=== PATIENT | male | born 1955 | race Caucasian/White ===

== ENCOUNTER 2024-10-20 03:58 | Inpatient (IN) | payer MEDICARE, OTHER ==
[2024-10-20] VITALS (15 sets, daily range): BP systolic 91–152; BP diastolic 56–94
[~2024-10-20] VITALS: Ht 177.8 cm; Wt 98.3 kg
[~2024-10-20 03:58] MED LIST: GLIMEPIRIDE2 MG PO; JANUMET XR 1001 EACH PO; LISINOPRIL30 MG PO; METANX CAPSULE1 EACH PO; METFORMIN HCL750 MG PO; SIMVASTATIN40 MG PO
[2024-10-20] MEDS ORDERED: FAMOTIDINE 20 MG/ 2 ML VIAL IV ONE (04:30)
[2024-10-20 04:33] LABS: BASOPHILS 0.6 % (0.2-1.2); EOSINOPHILS 5.5 % (0.8-7.0); LYMPHOCYTES 14.1 % (21.8-53.1); MCH 29.9 PG (25.7-32.2); MCHC 34.0 g/dL (32.3-36.5); MCV 88.0 fL (79.0-92.2); MONOCYTES 5.7 % (5.3-12.2); NEUTROPHILS 73.6 % (34.0-67.9); RBC 5.15 M/uL (4.63-6.08)
[2024-10-20 04:42] LABS: INR 1.07 (0.80-1.30); PROTIME 13.5 Sec (11.2-14.2)
[2024-10-20 04:46] LABS: ALT (SGPT) 36.0 U/L (14-59); AST (SGOT) 17.0 U/L (15-37); GLOMERULAR FILTRATION RATE,EST 93.0 mL/min (>60); PROTEIN, TOTAL 6.9 g/dL (6.4-8.2); UREA NITROGEN 15.0 mg/dL (7-18)
[2024-10-20 05:10] LABS: ABO O; ANTIBODY SCREEN NEGATIVE; RH POSITIVE
[2024-10-20] MEDS ORDERED: LACTATED RINGER'S 1,000 ML IV SCH ×2 (06:00→09:15)
[2024-10-20] MEDS ORDERED: TRANEXAMIC ACID IN NACL,ISO-OS 1,000 MG/100 ML PIGGYBACK IV SCH (06:30)
--- NOTE | 2024-10-20 06:52 | NUR ---
PATIENT ARRIVED FROM ED VIA STRETCHER WITH ROHINI ANDRES, AND . PATIENT IS ALERT AND ORIENTED, HE TRANSFERED SELF TO HOSPITAL BED. HE REPORTS NO PAIN OT NAUSEA AT THIS TIME. HE DID FEEL MILD NAUSEA IN ROUTE TO CCU FROM ED, BUT THAT HAS RESOLVED. V/S STABLE. IVF INFUSING.
--- NOTE | 2024-10-20 08:00 | NUR ---
PATIENT ADMITTED FOR GI BLEED INTO ROOM 128. PATIENT WOKE UP AROUND 0000 WITH BRIGHT RED BLOOD IN TOILET, AND THIS HAS CONTINUED. PATIENT DENIES FEELING LIGHTHEADED OR DIZZY, AND VITALS ARE STABLE. PT DOES REPORT TAKING ASPIRIN QUITE REGULARLY, NOT EVERY DAY BUT ALMOST, AND TAKES 3-4 OF THESE AT A TIMES FOR HIS CHRONIC BACK PAIN. PT AMBULATING INTO BATHROOM WITHOUT DIFFICULTY. PT'S LULU IN ROOM UPON ARRIVAL WELL. PLAN OF CARE DISCUSSED. PT TO SEE BOTH DR. REDD AND DR. MENDOZA. PT TO BE NPO UNTIL FURTHER ORDERS. IVF AT 125 ML/HR.
[2024-10-20] MEDS ORDERED: ASPIRIN81 MG PO (08:13)
--- NOTE | 2024-10-20 08:53 | NUR ---
DR. REDD IN TO SEE PATIENT AT THIS TIME. PT HAS HAD 1 LIQUID BURGUNDY BM IN BATHROOM THAT MEASURED 300 ML. PT DENIES ANY DIZZYNESS OR LIGHTHEADEDNESS WHEN AMBULATING. HR IN THE 70-80s, UP TO 110s WITH ACTIVITY. IVF CONTINUE AT 125 ML/HR. PLAN OF CARE BEING DISCUSSED.
[2024-10-20] MEDS ORDERED: TRANEXAMIC ACID IN NACL,ISO-OS 1,000 MG/100 ML PIGGYBACK IV ONE (09:00)
[2024-10-20] MEDS ORDERED: DEXTROSE 50% 50 ML SYR IV PRN ×2 (09:15)
[2024-10-20] MEDS ORDERED: IBLOOD GLUCOSE TEST STRIP 1 EA TEST XX PRN (09:15)
[2024-10-20] MEDS ORDERED: GLUCAGON,HUMAN RECOMBINANT 1 MG/ML VIAL SUB-Q PRN (09:15)
[2024-10-20] MEDS ORDERED: DEXTROSE 5% 1,000 ML IV PRN (09:15)
[2024-10-20] MEDS ORDERED: PANTOPRAZOLE SODIUM 40 MG/10 ML VIAL IV SCH (09:37)
--- NOTE | 2024-10-20 09:50 | NUR ---
Spoke with Neri. He lives in a 1 story home with his with 1 step. He does not use any DME.He is active and drives. They do not have financial or safety concerns. Pt plans on dc to home when he is cleared medically. He has not see a DrJanet in 10 years. Per his records are at Dr. Borrego's office. I will call to see if they will see this pt. They deny other needs.
--- NOTE | 2024-10-20 10:38 | NUR ---
UR CLINICAL REVIEW: 2 MN FOR [facility]ERSAL[facility]-PER HEAD SHIPPER MEETS INPT FOR GI BLEED WITH NEED S[facility], [employer]INE[employer] AND SURGICAL CONSULT MEDICARE INPT 10/20/24 @ 0910 ORDER MATCHES REG NO AUTH REQUIRED PER MEDICARE GUIDELINES DC TO HOME WHEN STABLE. MD ANTICIPATE 1-2 DAYS
--- NOTE | 2024-10-20 11:45 | NUR ---
DR. MENDOZA IN TO SEE PATIENT AND DISCUSSING PLAN OF CARE. PT TO HAVE LOWER SCOPE TODAY AROUNF 1630. PT SIGNS CONSENT FOR BOTH BLOOD PRODUCTS AND FOR PROCEDURE. PT REMAINS NPO. CBC NOW PENDING. PT HAS HAD 2 EPISODES OF BLOOD LIQUID BMs SO FAR THIS AM.
--- NOTE | 2024-10-20 11:56 | NUR ---
medications reconciled
[2024-10-20] MEDS ORDERED: PHARMACY RENAL DOSE ADJUSTMENT 1 DOSE MISC PO SCH (12:00)
[2024-10-20 12:08] LABS: BASOPHILS 0.6 % (0.2-1.2); EOSINOPHILS 1.7 % (0.8-7.0); LYMPHOCYTES 12.8 % (21.8-53.1); MCH 29.6 PG (25.7-32.2); MCHC 33.8 g/dL (32.3-36.5); MCV 87.5 fL (79.0-92.2); MONOCYTES 4.6 % (5.3-12.2); NEUTROPHILS 80.0 % (34.0-67.9); RBC 4.23 M/uL (4.63-6.08)
--- NOTE | 2024-10-20 12:49 | NUR ---
PATIENT RESTING AT THIS TIME. ASSESSMENT COMPLETE. PT DENIES FURTHER NEEDS. PT TO GO DOWN FOR A SCOPE AT 1600 TODAY.
[2024-10-20] MEDS ORDERED: IBLOOD GLUCOSE TEST STRIP 1 EA TEST VI SCH (14:00)
[2024-10-20] MEDS ORDERED: Insulin Regular, Human 100 UNIT/ML ML SUB-Q SCH (14:00)
--- NOTE | 2024-10-20 14:00 | NUR ---
Spoke with office staff, there is note in Neri's chart staing Dr. Borrego will see this pt whenever he needs to be seen. Appt scheduled for November 03 at 1020.
[2024-10-20] MEDS ORDERED: LIDOCAINE HCL 2% 5 ML SDV ONE (16:31)
--- NOTE | 2024-10-20 16:34 | NUR ---
PATIENT TAKEN TO LOWER SCOPE AT THIS TIME. PT ABLE TO AMBULATE TO STRETCHER IN [place] FROM CCU STRETCHER. PT'S TO GO HOME FOR A LITTLE BIT TO GRAB A BITE TO EAT BUT WILL RETURN. PT HAS REMAINED IN NORMAL SINUS RHYTHM. PATIENT'S LAST TRIP TO BATHROOM WAS ONLY FLATUS. WILL CONTINUE TO MONITOR.
[2024-10-20 18:09] LABS: BASOPHILS 0.6 % (0.2-1.2); EOSINOPHILS 3.1 % (0.8-7.0); LYMPHOCYTES 21.7 % (21.8-53.1); MCH 29.6 PG (25.7-32.2); MCHC 33.5 g/dL (32.3-36.5); MCV 88.2 fL (79.0-92.2); MONOCYTES 6.2 % (5.3-12.2); NEUTROPHILS 68.1 % (34.0-67.9); RBC 3.82 M/uL (4.63-6.08)
--- NOTE | 2024-10-20 18:47 | NUR ---
PATIENT BACK FROM SCOPE AROUND 1715 AND TOLERATED WELL. PT DID NOT HAVE ANY ACTIVE BLEEDING DURING SCOPE BUT DID HAVE SMALL AMOUNT OF CLOT PER MD. PT'S DID GO HOME FOR THE NIGHT. PT HAS BEEN PASSING GAS WELL. CBC AT 1800 DONE AND SHOWS 11.3/33.7. WILL CONTINUE TO MONITOR.
--- NOTE | 2024-10-20 20:15 | NUR ---
ROUNDING ON PATIENT, PATIENT REPORTS HE FEELS HE HAS PASSED ALL THE "GAS" NOW AND WOULD LIKE TO GET CLEANED UP. PATIENT NOTED TO HAVE LARGE QUANTITY OF RED/BROWN BLOOD ON BED/GOWN AND BLANKETS. THIS RN ASSISTED PATIENT UP TO SIDE OF BED, BED BATH WIPES USED TO CLEAN AND PROVIDE NEW GOWN. PATIENT THEN SAT UP IN RECLINER UNTIL FULL BED CHANGE COMPLETE. PATIENT ALERT AND ORIENTED, HE REPORTS, "I HAVE NO PAIN NOW THAT THE GAS IS MOVED OUT." PATIENT IS STEADY ON HIS FEET AND REPORTS NO DIZZINESS WITH AMBULATION. V/S STABLE AND ASSESSMENT COMPLETE, NO NEW CONCERNS FROM SHIFT REPORT.
[2024-10-21] VITALS (7 sets, daily range): BP systolic 110–135; BP diastolic 66–92
[2024-10-21 00:15] LABS: BASOPHILS 0.6 % (0.2-1.2); EOSINOPHILS 5.4 % (0.8-7.0); LYMPHOCYTES 25.8 % (21.8-53.1); MCH 29.5 PG (25.7-32.2); MCHC 32.8 g/dL (32.3-36.5); MCV 90.0 fL (79.0-92.2); MONOCYTES 7.7 % (5.3-12.2); NEUTROPHILS 60.3 % (34.0-67.9); RBC 3.49 M/uL (4.63-6.08)
--- NOTE | 2024-10-21 00:26 | NUR ---
PATIENT CONSUMED FULL CUP OF CHICKEN BROTH AND CRANBERRY JUICE PROVIDED EARLIER. PATIENT UP TO BATHROOM AT THIS TIME PRODUCED 350ML URINE AND MEDIUM FORMED BURGUNDY BM. HE REPORTS NO PAIN, NO OTHER CONCERNS, ASSESSMENT COMPLETE.
--- NOTE | 2024-10-21 01:30 | NUR ---
PATIENT RESTING IN BED, EYES CLOSED, SNORING, ALERT TO NAME, PATIENT SAT UP AT SIDE OF BED TO TAKE SCHEDULED MEDICATIONS. HE REPORTS PAIN 6/10 AND HE SAID THAT IS TOLERABLE FOR HIM HE DECLINES NEEDING PAIN COVERAGE AT THIS TIME.
--- NOTE | 2024-10-21 02:43 | NUR ---
PATIENT UPTO BATHROOM HAD FORMED BURGUNDY BM. PATIENT TOLERATED ACTIVITY WELL.
--- NOTE | 2024-10-21 05:20 | NUR ---
PATIENT ALERT AND ORIENTED AFTER AM LAB DRAW, ASSESSMENT COMPLETE, HE REQUEST CRANBERRY JUICE, PROVIDED AND FRESH WATER WELL. NO NEW CONCERNS THIS AM.
[2024-10-21 05:22] LABS: BASOPHILS 0.7 % (0.2-1.2); EOSINOPHILS 5.1 % (0.8-7.0); LYMPHOCYTES 21.7 % (21.8-53.1); MCH 29.9 PG (25.7-32.2); MCHC 33.7 g/dL (32.3-36.5); MCV 88.7 fL (79.0-92.2); MONOCYTES 6.3 % (5.3-12.2); NEUTROPHILS 65.9 % (34.0-67.9); RBC 3.55 M/uL (4.63-6.08)
[2024-10-21 05:38] LABS: ALT (SGPT) 28.0 U/L (14-59); AST (SGOT) 20.0 U/L (15-37); GLOMERULAR FILTRATION RATE,EST 98.0 mL/min (>60); PHOSPHORUS, INORGANIC 3.0 mg/dL (2.5-4.9); PROTEIN, TOTAL 5.3 g/dL (6.4-8.2); UREA NITROGEN 7.0 mg/dL (7-18)
--- NOTE | 2024-10-21 07:59 | NUR ---
IN PATIENT'S ROOM FOR AM ASSESSMENT AND VITALS. PT REPORTS FEELING GOOD OVERALL, BUT TIRED. H/H STABLE THIS AM. DR. MENDOZA CALLED BY THIS RN TO SEE IF DIET CAN BE ADVANCED-NOW ON 60 GM CARB DIET. PT STATES HE IS HUNGRY. DENIES ANY ABDOMINAL PAIN. WILL CONTINUE TO MONITOR.
[2024-10-21] MEDS ORDERED: IBLOOD GLUCOSE TEST STRIP 1 EA TEST VI SCH (08:00)
[2024-10-21] MEDS ORDERED: Insulin Regular, Human 100 UNIT/ML ML SUB-Q SCH (08:00)
--- NOTE | 2024-10-21 09:04 | NUR ---
NOW PRESENT IN ROOM. BREAKFAST TRAY CLEARED BY DMITRY ROGER. PT SITTING UP IN CHAIR. CALL LIGHT IN REACH
--- NOTE | 2024-10-21 09:21 | OR ---
[facility] [address] [place] [address] [place], [place] [address] Signed DATE OF OPERATION: 10/20/2024 SURGEON: Mando Stallings DO PREOPERATIVE DIAGNOSIS: Lower gastrointestinal bleed. POSTOPERATIVE DIAGNOSIS: Lower gastrointestinal bleed with clot in diverticulum. PROCEDURE PERFORMED: Pancolonoscopy. ANESTHESIA: IV sedation. ESTIMATED BLOOD LOSS: Approximately 50 mL of clot. DRAINS: None. COMPLICATIONS: None. DESCRIPTION OF PROCEDURE: The patient was brought to the GI lab, placed in supine position. After induction of IV sedation, the patient was placed in the left lateral position and padded to the satisfaction of anesthesia. The Olympus video endoscope was then introduced into the rectum, the sigmoid colon, descending colon, transverse colon, ascending colon into the cecum under direct visualization and insufflation. The scope was then brought back slowly and exploration of mucosal surface was then completed. The cecum and ascending colon did not have intrinsic or extrinsic masses noted. The scope was brought back into the transverse colon where multiple fecal balls were appreciated, but no intrinsic or extrinsic masses or bleeding were noted. The scope was brought back into the splenic flexure to the descending colon and fecal contents were noted, but no intrinsic or extrinsic masses noted. No bleeding was appreciated. Scope was brought back into the sigmoid colon. Multiple areas of diverticulum were present with clot in the diverticulum itself, no active bright red blood was noted. This was throughout the sigmoid colon down to the rectosigmoid. The sigmoid colon otherwise had no intrinsic or Electronically Signed By: MANDO STALLINGS DO 10/21/24 0921 PATIENT NAME: RYAN MARQUEZ OPERATIVE REPORT DATE OF : 51 REPORT #: [id number] PHYSICIAN: MANDO STALLINGS DO PCP: SANDRO TRUJILLO MD REPORT IS CONFIDENTIAL AND NOT TO BE RELEASED WITHOUT AUTHORIZATION [facility] [address], [place] [address] Signed extrinsic masses appreciated. The scope was then withdrawn to the rectosigmoid. Some diverticula appreciated with no active bleeding noted there. All clot was aspirated. The colon was decompressed. Scope was withdrawn in its entirety. The patient tolerated the procedure well, went to recovery room in satisfactory condition. DO MELO Verma/LUIS ARMANDO /[id number] Copies: ~ Electronically Signed By: MANDO STALLINGS DO 10/21/24 0921 PATIENT NAME: RYAN MARQUEZ OPERATIVE REPORT DATE OF : 51 REPORT #: [id number] PHYSICIAN: MANDO STALLINGS DO PCP: SANDRO TRUJILLO MD REPORT IS CONFIDENTIAL AND NOT TO BE RELEASED WITHOUT AUTHORIZATION
--- NOTE | 2024-10-21 09:23 | NUR ---
DR. REDD IN TO SEE PATIENT AT THIS TIME AND DISCUSSING PLAN. PT WILL D/C HOME AND WILL HAVE BLOOD DRAWN ON THIS SUNDAY WITH A NEW APPT TO BE SEEN BY DR. TRUJILLO ON THIS COMING SUNDAY. PT'S LULU IS HERE NOW AND ASKING ABOUT PT'S BLOOD SUGAR LEVELS. PT EAGER TO GO HOME AND FEELING OKAY. PT REMAINS IN SINUS RHYTHM 70-80s ADN LAST BP 135/82.
[2024-10-21] MEDS ORDERED: METFORMIN HCL500 MG PO (09:49)
--- NOTE | 2024-10-21 10:08 | NUR ---
10/21/24 1008 Shweta Skinner 10/20/24 1715: PT IS TAKEN DIRECTLY FROM ENDO TO CCU ROOM 128. SMUTTER HELPS GET PT TUCKED IN. ANESTHESIA GIVES REPORT TO CCU RN DUE TO PT BEING A MAC.
== END 2024-10-21 10:25 | disposition home or self-care (01) | DRG 392 ==
LOC: ED 03:58 → CCU 04:00
PROVIDERS: Internal Medicine; Surgery; ADMIT Family Medicine; ATTEND Family Medicine
PROC: 0DCL8ZZ Extirpation of Matter from Transverse Colon, Via Natural or Artificial Opening Endoscopic (ICD-10-PCS; 2024-10-20)
PROC: 0DCK8ZZ Extirpation of Matter from Ascending Colon, Via Natural or Artificial Opening Endoscopic (ICD-10-PCS; 2024-10-20)
PROC: 0DCN8ZZ Extirpation of Matter from Sigmoid Colon, Via Natural or Artificial Opening Endoscopic (ICD-10-PCS; 2024-10-20)
PROC: 0DCM8ZZ Extirpation of Matter from Descending Colon, Via Natural or Artificial Opening Endoscopic (ICD-10-PCS; principal; 2024-10-20 16:30)
DX: K52.9 Noninfective gastroenteritis and colitis, unspecified (principal); K92.2 Gastrointestinal hemorrhage, unspecified; E11.9 Type 2 diabetes mellitus without complications; F17.210 Nicotine dependence, cigarettes, uncomplicated; Z98.52 Vasectomy status; Z90.89 Acquired absence of other organs; Z98.890 Other specified postprocedural states; Z88.1 Allergy status to other antibiotic agents; Z88.2 Allergy status to sulfonamides; Z79.899 Other long term (current) drug therapy; Z79.84 Long term (current) use of oral hypoglycemic drugs
CPT/HCPCS: 00811; 36415; 74177; 80053; 83036; 83735; 84100; 85014; 85018; 85025; 85610; 85730; 86850; 86900; 86901; 96376; G0378; J1815; J2003; J2470; J2704; J7121; Q9967